=== PATIENT | female | born 1990 | race Caucasian/White ===

== ENCOUNTER 2017-12-25 09:45 | Inpatient (IN) | payer BC ==
[~2017-12-25] VITALS: Ht 154.9 cm; Wt 93.6 kg
[2017-12-25] MEDS ORDERED: PREN1TAB60 PO (09:51)
[2017-12-25 10:01] VITALS: BP 162/93
[2017-12-25 10:20] LABS: BASOPHILS # (AUTO) 0.02 x10^3/uL (0-0.1); BASOPHILS % (AUTO) 0 % (0-1); EOSINOPHILS % (AUTO) 1 % (1-7); LYMPHOCYTES % (AUTO) 21 % (22-44); MD NO; MEAN CORPUSCULAR HEMOGLOBIN 29.2 pg (27.0-34.8); MEAN CORPUSCULAR HGB CONC 33.5 g/dL (32.4-35.8); MEAN CORPUSCULAR VOLUME 87.2 fL (80-100); MEAN PLATELET VOLUME 9.2 fL (7.4-10.4); MONOCYTES # (AUTO) 0.66 x10^3/uL (0.2-0.8); MONOCYTES % (AUTO) 6 % (2-9); NEUTROPHILS # (AUTO) 8.23 x10^3/uL (1.8-6.8); NEUTROPHILS % (AUTO) 72 % (42-75); PLATELET COUNT 275 x10^3/uL (130-400); RED CELL DISTRIBUTION WIDTH 14.1 % (9.6-15.2)
[2017-12-25 10:28] LABS: CREATININE,URINE RANDOM 79.7 mg/dL
[2017-12-25 10:31] LABS: ALANINE AMINOTRANSFERASE 14 U/L (12-78); ALBUMIN 2.1 g/dL (3.4-5.0); ANION GAP 7 mmol/L (5-15); CALCIUM 8.3 mg/dL (8.5-10.1); CHLORIDE 110 mmol/L (98-107); CREATININE 0.62 mg/dL (0.55-1.02)
[2017-12-25 10:33] LABS: ALKALINE PHOSPHATASE 146 U/L (45-117); BILIRUBIN,TOTAL 0.2 mg/dL (0.2-1.0); TOTAL PROTEIN 5.7 g/dL (6.4-8.2)
[2017-12-25] MEDS ORDERED: LACTATED RINGERS 1,000 ML IV SCH (11:06)
[2017-12-25] MEDS ORDERED: OXYTOCIN 30U/ 0.9% NaCL 500ML 500 ML IV ONE (11:06)
[2017-12-25] MEDS ORDERED: OXYTOCIN 30U/ 0.9% NaCL 500ML 500 ML IV PRN (11:06)
[2017-12-25] MEDS ORDERED: D5%-LACTATED RINGERS 1,000 ML IV SCH (11:06)
[2017-12-25] MEDS ORDERED: FENTANYL PF 100 MCG/2ML IVPush PRN (11:30)
[2017-12-25] MEDS ORDERED: ONDANSETRON 2MG/ML, 2ML IVPush PRN (11:30)
[2017-12-25] MEDS ORDERED: FENTANYL PF 100 MCG/2ML IV PRN (11:30)
[2017-12-25] MEDS ORDERED: TERBUTALINE 1 MG/ML, 1ML IVPush PRN (11:30)
[2017-12-25] MEDS ORDERED: TERBUTALINE 1 MG/ML, 1ML SQ PRN (11:30)
[2017-12-25] MEDS ORDERED: LIDOCAINE 1%, 20ML ONE (11:43)
[2017-12-25] MEDS ORDERED: NEWBORN KIT ONE (11:43)
[2017-12-25] MEDS ORDERED: OXYTOCIN 30U/ 0.9% NaCL 500ML 0 ML ONE (11:44)
[2017-12-25] MEDS ORDERED: MISOPROSTOL 200 MCG TABLET ONE (11:44)
== END 2017-12-25 15:20 | disposition home or self-care (01) | DRG 782 ==
LOC: LDOP 09:45 → LDIP 11:06
PROVIDERS: ADMIT Obstetrics & Gynecology; ATTEND Obstetrics & Gynecology
DX: O13.3 Gestational [pregnancy-induced] hypertension without significant proteinuria, third trimester (principal); Z3A.37 37 weeks gestation of pregnancy
CPT/HCPCS: 36415; 80053; 81050; 82570; 83615; 84156; 84550; 85025; 86850; 86900; J7120

== ENCOUNTER 2017-12-27 10:30 | Inpatient (IN) | payer BC ==
[~2017-12-27] VITALS: Ht 154.9 cm; Wt 93.6 kg
[~2017-12-27 10:30] MED LIST: PREN1TAB60 PO
[2017-12-27] MEDS ORDERED: OXYTOCIN 30U/ 0.9% NaCL 500ML 500 ML IV ONE (10:44)
[2017-12-27] MEDS ORDERED: ONDANSETRON 2MG/ML, 2ML IVPush PRN (11:00)
[2017-12-27] MEDS ORDERED: SODIUM CHLORIDE FLUSH 10ML SYR IVF PRN (11:00)
[2017-12-27] MEDS ORDERED: FENTANYL PF 100 MCG/2ML IVPush PRN (11:00)
[2017-12-27] MEDS ORDERED: MISOPROSTOL 25 MCG TABLET VG PRN (11:00)
[2017-12-27] MEDS ORDERED: FENTANYL PF 100 MCG/2ML IV PRN (11:00)
[2017-12-27 11:05] VITALS: BP 143/84
[2017-12-27 11:08] LABS: MICROSCOPIC INDICATED
[2017-12-27 11:16] LABS: BASOPHILS # (AUTO) 0.03 x10^3/uL (0-0.1); BASOPHILS % (AUTO) 0 % (0-1); EOSINOPHILS # (AUTO) 0.08 x10^3/uL (0-0.4); EOSINOPHILS % (AUTO) 1 % (1-7); LYMPHOCYTES # (AUTO) 1.97 x10^3/uL (1-3.4); LYMPHOCYTES % (AUTO) 18 % (22-44); MD NO; MEAN CORPUSCULAR HEMOGLOBIN 28.9 pg (27.0-34.8); MEAN CORPUSCULAR VOLUME 87.6 fL (80-100); MEAN PLATELET VOLUME 9.5 fL (7.4-10.4); MONOCYTES # (AUTO) 0.66 x10^3/uL (0.2-0.8); MONOCYTES % (AUTO) 6 % (2-9); NEUTROPHILS # (AUTO) 8.46 x10^3/uL (1.8-6.8); NEUTROPHILS % (AUTO) 75 % (42-75); PLATELET COUNT 296 x10^3/uL (130-400); RED BLOOD COUNT 4.23 x10^6/uL (3.82-5.3); RED CELL DISTRIBUTION WIDTH 14.4 % (9.6-15.2)
[2017-12-27 11:27] LABS: ALBUMIN 2.2 g/dL (3.4-5.0); ANION GAP 8 mmol/L (5-15); CALCIUM 8.2 mg/dL (8.5-10.1); CHLORIDE 111 mmol/L (98-107)
[2017-12-27] MEDS: PLEASE ENTER HEIGHT AND WEIGHT MC SCH ×2 (11:30→19:30)
[2017-12-27 11:31] LABS: CREATININE 0.57 mg/dL (0.55-1.02)
[2017-12-27 11:31] LABS: PROTEIN/CREATININE RATIO,URINE < 179 (0-200); TOTAL PROTEIN,URINE RANDOM < 5 mg/dL (0-12)
[2017-12-27 11:32] LABS: ALANINE AMINOTRANSFERASE 16 U/L (12-78); ALKALINE PHOSPHATASE 148 U/L (45-117); BILIRUBIN,TOTAL 0.3 mg/dL (0.2-1.0); TOTAL PROTEIN 5.9 g/dL (6.4-8.2)
[2017-12-27] MEDS ORDERED: NEWBORN KIT ONE (11:48)
[2017-12-27] MEDS ORDERED: OXYTOCIN 30U/ 0.9% NaCL 500ML 500 ML IV PRN (18:10)
[2017-12-27] MEDS: D5%-LACTATED RINGERS 1,000 ML IV SCH (18:44)
[2017-12-27] MEDS ORDERED: DIPHENHYDRAMINE 25 MG CAPSULE ONE (22:11)
[2017-12-27] MEDS ORDERED: DIPHENHYDRAMINE 50 MG CAPSULE PO PRN (22:30)
[2017-12-27] MEDS ORDERED: hydrALAzine 20 MG/ML, 1ML IV PRN (22:30)
[2017-12-27] MEDS ORDERED: DIPHENHYDRAMINE 25 MG CAPSULE PO PRN (23:00)
[2017-12-28] MEDS: LACTATED RINGERS 1,000 ML IV SCH ×5 (02:44→22:06)
[2017-12-28] MEDS: D5%-LACTATED RINGERS 1,000 ML IV SCH ×4 (02:44→18:44)
[2017-12-28] MEDS: PLEASE ENTER HEIGHT AND WEIGHT MC SCH ×3 (03:30→19:30)
[2017-12-28] MEDS ORDERED: OXYTOCIN 30U/ 0.9% NaCL 500ML 500 ML ONE ×2 (04:48→23:50)
[2017-12-28] MEDS ORDERED: BUPIVACAINE 0.25% ONE (09:31)
[2017-12-28] MEDS ORDERED: FENTANYL/BUPIV./NS/PF 250 ML EPIDCONT ONE (09:31)
[2017-12-28] MEDS ORDERED: FENTANYL PF 100 MCG/2ML ONE ×2 (09:31→20:40)
[2017-12-28] MEDS ORDERED: GENTAMICIN 240 MG in SODIUM CHLORIDE 0.9% 100 ML IV SCH (17:00)
[2017-12-28] MEDS ORDERED: ACETAMINOPHEN 500 MG TABLET PO ONE (17:00)
[2017-12-28] MEDS ORDERED: AMPICILLIN 2 GM in SODIUM CHLORIDE 0.9% 100 ML IV ONE (17:00)
[2017-12-28] MEDS ORDERED: GENTAMICIN PER PHARMACY MC PRN (17:00)
[2017-12-28] MEDS ORDERED: CEFAZOLIN PMX 2GM/50ML 50 ML IVPB ONE (17:00)
[2017-12-28] MEDS ORDERED: PHARMACOKINETIC MONITORING MC PRN (17:00)
[2017-12-28] MEDS ORDERED: LIDOCAINE 1%, 20ML ONE (17:31)
[2017-12-28] MEDS ORDERED: MISOPROSTOL 200 MCG TABLET ONE (17:31)
[2017-12-28] MEDS ORDERED: FENTANYL/BUPIV./NS/PF 250 ML EPIDCONT SCH (19:32)
[2017-12-28] MEDS ORDERED: LACTATED RINGERS 1,000 ML IV SCH (19:32)
[2017-12-28] MEDS ORDERED: EPHEDRINE 50 MG/ML, 1ML IVPush PRN (20:00)
[2017-12-28] MEDS ORDERED: LACTATED RINGERS 1,000 ML IVBOLUS PRN (20:00)
[2017-12-28] MEDS ORDERED: ONDANSETRON 2MG/ML, 2ML IVPush PRN (20:00)
[2017-12-28] MEDS ORDERED: AMPICILLIN 2 GM in SODIUM CHLORIDE 0.9% 100 ML IV SCH (22:30)
[2017-12-28] MEDS ORDERED: AMPICILLIN 2 GM in SODIUM CHLORIDE 0.9% 50 ML IV SCH (22:30)
[2017-12-28] MEDS ORDERED: OXYTOCIN 30U/ 0.9% NaCL 500ML 500 ML IV SCH ×2 (23:25)
[2017-12-28] MEDS ORDERED: ONDANSETRON 2MG/ML, 2ML IV PRN (23:30)
[2017-12-28] MEDS ORDERED: MISOPROSTOL 200 MCG TABLET PR PRN (23:30)
[2017-12-28] MEDS ORDERED: CALCIUM CARBONATE 500 MG TAB.CHEW PO PRN (23:30)
[2017-12-28] MEDS ORDERED: BISACODYL 10 MG SUPP PR PRN (23:30)
[2017-12-28] MEDS ORDERED: CARBOPROST TROMETHAMINE 250 MCG/ML, 1ML IM PRN (23:30)
[2017-12-28] MEDS ORDERED: ACETAMINOPHEN 325 MG TABLET PO PRN ×2 (23:30)
[2017-12-28] MEDS ORDERED: HYDROcodone/APAP 5/325 TABLET PO PRN (23:30)
[2017-12-28] MEDS ORDERED: OXYcodone/APAP 5/325MG TABLET ONE (23:49)
[2017-12-28] MEDS ORDERED: IBUPROFEN 600 MG TABLET ONE (23:49)
[2017-12-28] MEDS: IBUPROFEN 600 MG TABLET PO PRN (23:52)
[2017-12-28] MEDS ORDERED: HYDROcodone/APAP 5/325 TABLET ONE (23:55)
[2017-12-28] MEDS: HYDROcodone/APAP 5/325 TABLET PO PRN (23:58)
[2017-12-29 01:25] VITALS: BP 139/78
[2017-12-29 04:30] VITALS: BP 130/82
[2017-12-29 06:42] LABS: MEAN CORPUSCULAR HEMOGLOBIN 29.1 pg (27.0-34.8); MEAN CORPUSCULAR HGB CONC 33.1 g/dL (32.4-35.8); MEAN CORPUSCULAR VOLUME 87.9 fL (80-100); MEAN PLATELET VOLUME 9.2 fL (7.4-10.4); PLATELET COUNT 266 x10^3/uL (130-400); RED BLOOD COUNT 4.19 x10^6/uL (3.82-5.3); RED CELL DISTRIBUTION WIDTH 14.4 % (9.6-15.2)
[2017-12-29 07:02] LABS: MD YES
[2017-12-29 07:29] LABS: <PLATELET ESTIMATE> ADEQUATE; <PLT MORPHOLOGY> NORMAL PLT MORPH; LYMPH#(MANUAL) 1.86 x10^3/uL (1-3.4); LYMPHS% (MANUAL) 6 % (22-44); MONOS% (MANUAL) 10 % (2-9); SEG#(MANUAL) 26.04 x10^3/uL (1.8-6.8); SEGS% (MANUAL) 84 % (42-75)
[2017-12-29 07:30] LABS: ANISOCYTOSIS 1+
[2017-12-29 08:34] VITALS: BP 141/93
[2017-12-29] MEDS: DOCUSATE 100 MG CAPSULE PO PRN (10:43)
[2017-12-29] MEDS: IBUPROFEN 600 MG TABLET PO PRN ×2 (10:43→20:45)
[2017-12-29] MEDS: PRENATAL VIT/IRON/FA 1 EACH TABLET PO SCH (10:43)
[2017-12-29 12:55] VITALS: BP 140/87
[2017-12-29] MEDS ORDERED: MEASLES,MUMPS&RUBELLA VACC/PF 0.5 ML SQ-VACC ONE ×2 (13:31→14:00)
[2017-12-29 19:50] VITALS: BP 149/91
[2017-12-29] MEDS: HYDROcodone/APAP 5/325 TABLET PO PRN (20:45)
[2017-12-29 21:32] VITALS: BP 123/83
[2017-12-30 08:10] VITALS: BP 155/97
[2017-12-30] MEDS: DOCUSATE 100 MG CAPSULE PO PRN (08:11)
[2017-12-30] MEDS: PRENATAL VIT/IRON/FA 1 EACH TABLET PO SCH (08:11)
[2017-12-30] MEDS: IBUPROFEN 600 MG TABLET PO PRN (08:11)
[2017-12-30 08:45] VITALS: BP 137/86
[2017-12-30] MEDS ORDERED: OXYC-302 PO (10:17)
[2017-12-30] MEDS ORDERED: IBUP-1222 PO (10:17)
== END 2017-12-30 12:15 | disposition home or self-care (01) | DRG 775 ==
LOC: LDIP 10:30 → 2NW 12-29 01:09
PROVIDERS: ADMIT Obstetrics & Gynecology; ATTEND Obstetrics & Gynecology
PROC: 10E0XZZ Delivery of Products of Conception, External Approach (ICD-10-PCS; principal; 2017-12-28)
PROC: 10907ZC Drainage of Amniotic Fluid, Therapeutic from Products of Conception, Via Natural or Artificial Opening (ICD-10-PCS; 2017-12-28)
PROC: 3E033VJ Introduction of Other Hormone into Peripheral Vein, Percutaneous Approach (ICD-10-PCS; 2017-12-28)
PROC: 0U7C7ZZ Dilation of Cervix, Via Natural or Artificial Opening (ICD-10-PCS; 2017-12-28)
PROC: 3E0R3BZ Introduction of Anesthetic Agent into Spinal Canal, Percutaneous Approach (ICD-10-PCS; 2017-12-28)
PROC: 00HU33Z Insertion of Infusion Device into Spinal Canal, Percutaneous Approach (ICD-10-PCS; 2017-12-28)
DX: O13.4 Gestational [pregnancy-induced] hypertension without significant proteinuria, complicating childbirth (principal); O41.1230 Chorioamnionitis, third trimester, not applicable or unspecified; O24.429 Gestational diabetes mellitus in childbirth, unspecified control; O69.81X0 Labor and delivery complicated by cord around neck, without compression, not applicable or unspecified; Z3A.37 37 weeks gestation of pregnancy; Z37.0 Single live birth; O71.89 Other specified obstetric trauma; Z80.1 Family history of malignant neoplasm of trachea, bronchus and lung; Z80.3 Family history of malignant neoplasm of breast; O99.52 Diseases of the respiratory system complicating childbirth; J45.990 Exercise induced bronchospasm
CPT/HCPCS: 36415; 80053; 81001; 82570; 84156; 84550; 85025; 86850; 86900; J0290; J1580; J2590; J7120; J7121

== ENCOUNTER 2019-03-16 14:53 | Emergency (ER) | payer BC ==
[~2019-03-16] VITALS: Ht 154.9 cm; Wt 81.0 kg
[~2019-03-16 14:53] MED LIST changes: +IBUP-1222 PO; +OXYC-302 PO
--- NOTE | 2019-03-16 15:21 | NUR ---
PIV started, labs drawn and sent. Urine sample collected and sent to lab. IVF infusing.
[2019-03-16] MEDS ORDERED: ONDANSETRON 2MG/ML, 2ML IVPush ONE (15:30)
[2019-03-16] MEDS ORDERED: SODIUM CHLORIDE 0.9% 1,000ML IVBOLUS ONE (15:30)
[2019-03-16] MEDS ORDERED: SODIUM CHLORIDE FLUSH 10ML SYR IVF ONE (15:30)
[2019-03-16] MEDS ORDERED: FAMOTIDINE 20 MG/2 ML IVP ONE (15:30)
[2019-03-16] MEDS ORDERED: ONDANSETRON 2MG/ML, 2ML ONE (15:32)
[2019-03-16] MEDS ORDERED: FAMOTIDINE 20 MG/2 ML ONE (15:32)
[2019-03-16 15:35] LABS: BASOPHILS % (AUTO) 0 % (0-1); EOSINOPHILS # (AUTO) 0.01 x10^3/uL (0-0.4); EOSINOPHILS % (AUTO) 0 % (1-7); LYMPHOCYTES # (AUTO) 0.33 x10^3/uL (1-3.4); LYMPHOCYTES % (AUTO) 3 % (22-44); MD NO; MEAN CORPUSCULAR HEMOGLOBIN 29.3 pg (27.0-34.8); MEAN CORPUSCULAR HGB CONC 33.3 g/dL (32.4-35.8); MEAN CORPUSCULAR VOLUME 87.9 fL (80-100); MEAN PLATELET VOLUME 8.3 fL (7.4-10.4); MONOCYTES # (AUTO) 0.43 x10^3/uL (0.2-0.8); MONOCYTES % (AUTO) 3 % (2-9); NEUTROPHILS # (AUTO) 12.73 x10^3/uL (1.8-6.8); NEUTROPHILS % (AUTO) 94 % (42-75); PLATELET COUNT 366 x10^3/uL (130-400); RED BLOOD COUNT 5.79 x10^6/uL (3.82-5.3); RED CELL DISTRIBUTION WIDTH 13.9 % (9.6-15.2)
[2019-03-16 15:41] LABS: MICROSCOPIC AUTO
[2019-03-16 15:42] LABS: CULTURE INDICATED? NO
[2019-03-16 15:48] LABS: ALBUMIN 4.1 g/dL (3.4-5.0); ANION GAP 9 mmol/L (5-15); CALCIUM 8.7 mg/dL (8.5-10.1); CHLORIDE 108 mmol/L (98-107)
[2019-03-16 15:55] LABS: ALANINE AMINOTRANSFERASE 40 U/L (12-78); ALKALINE PHOSPHATASE 137 U/L (45-117); BILIRUBIN,TOTAL 0.8 mg/dL (0.2-1.0); CREATININE 0.83 mg/dL (0.55-1.02); TOTAL PROTEIN 7.9 g/dL (6.4-8.2)
--- NOTE | 2019-03-16 15:55 | NUR ---
Pt states she's feeling much better, IVF almost finished infusing. Pt remains on monitors, VSS.
[2019-03-16 16:44] VITALS: BP 114/67
--- NOTE | 2019-03-16 16:44 | NUR ---
Patient/Caregiver given discharge instructions and they have confirmed that they understand the instructions. Patient ambulatory with steady gait.
== END 2019-03-16 16:46 | disposition home or self-care (01) ==
LOC: ED 15:25
DX: R11.2 Nausea with vomiting, unspecified (principal); R10.31 Right lower quadrant pain; R19.7 Diarrhea, unspecified; R10.32 Left lower quadrant pain
CPT/HCPCS: 36415; 80053; 81001; 83690; 84703; 85025; 96361; 96374; 96375; 99283; J2405; J3490; J7030